=== PATIENT | female | born 1945 | race Caucasian/White ===

== ENCOUNTER 2016-08-02 11:37 | Emergency (ER) | payer OTHER ==
[2016-08-02 11:45] VITALS: TEMP 97.8; BMI 34.4
--- NOTE | 2016-08-02 12:13 | PDOC ---
History of Present Illness - General History Source: Patient, Family Exam Limitations: Language Barrier - History of Present Illness Initial Comments: 08/02/16 12:18 The patient is a 70 year old female, accompanied by daughter, with a significant past medical history of hypertension(noncompliant with medication due to symptoms associated with taking medications), who presents to the emergency department complaining of non-radiating abdominal pain for approximately 2 weeks. As per daughter the patient has been experiencing associated dizziness, dry mouth, and has been increasing consumption of fluids. Daughter reports the patient abdominal pain is alleviated when drinking water, and exacerbated when she stops drinking water. The daughter reports the patient has not been herself since the onset of her symptoms, and states she has been increasingly sleepy during the middle of the day. The patient denies any changes in appetite, but reports some abdominal pain and burning in her chest after eating. As per daughter, the patient is currently not taking any medication other than advil. The patient reports increased urinary frequency, but denies dysuria, hematuria, or urgency. The patient reports diaphoresis, but denies any chest pain, shortness of breath, palpitations, or lower extremity edema. The patient denies any fever, chills, cough, or headache. The patient denies any nausea, vomiting, diarrhea, or constipation. Allergies: NKDA Surgical History: Cholecystectomy Social History: Non-smoker. No ETOH or drug use. <Jennifer Spencer - Last Filed: 08/02/16 12:44> <Rosanna Kay - Last Filed: 08/02/16 15:40> - General Chief Complaint: Pain Stated Complaint: STOMACH PAIN Time Seen by Provider: 08/02/16 11:55 Past History <Jennifer Spencer - Last Filed: 08/02/16 12:44> - Surgical History Cholecystectomy: Yes - Psycho/Social/Smoking Cessation Hx Suicidal Ideation: No Smoking History: Never smoked Information on smoking cessation initiated: No <Rosanna Kay - Last Filed: 08/02/16 15:40> - Past Medical History Allergies/Adverse Reactions: Allergies Allergy/AdvReac Type Severity Reaction Status Date / Time No Known Allergies Allergy Verified 08/02/16 11:45 Home Medications: Ambulatory Orders Metformin HCl 500 mg PO BID #60 tablet 08/02/16 Review of Systems - Review of Systems Able to Perform ROS?: Yes Comments:: 08/02/16 12:18 GENERAL/CONSTITUTIONAL: No fever or chills. No weakness. HEAD, EYES, EARS, NOSE AND THROAT: +Dry mouth. No change in vision. No ear pain or discharge. No sore throat. CARDIOVASCULAR: No chest pain or shortness of breath. RESPIRATORY: No cough, wheezing, or hemoptysis. GASTROINTESTINAL: +Abdominal pain. No nausea, vomiting, diarrhea or constipation. GENITOURINARY: +Frequency. No dysuria or hematuria. MUSCULOSKELETAL: No joint or muscle swelling or pain. No neck or back pain. SKIN: No rash NEUROLOGIC: +Dizziness. No headache, vertigo, loss of consciousness, or change in strength/sensation. ENDOCRINE: +Increased thirst. No abnormal weight change. HEMATOLOGIC/LYMPHATIC: No anemia, easy bleeding, or history of blood clots. ALLERGIC/IMMUNOLOGIC: No hives or skin allergy. <TjGiomilsy - Last Filed: 08/02/16 12:44> *Physical Exam - Vital Signs Last Vital Signs Temp Pulse Resp BP Pulse Ox 97.8 F 83 18 159/85 97 08/02/16 11:42 08/02/16 11:42 08/02/16 11:42 08/02/16 11:42 08/02/16 11:42 - Physical Exam Comments: 08/02/16 12:19 GENERAL: Awake, alert, and fully oriented, in no acute distress HEAD: No signs of trauma EYES: PERRLA, EOMI, sclera anicteric, conjunctiva clear ENT: Auricles normal inspection, hearing grossly normal, nares patent, oropharynx clear without exudates. Dry mucosa NECK: Normal ROM, supple, no lymphadenopathy, JVD, or masses LUNGS: Breath sounds equal, clear to auscultation bilaterally. No wheezes, and no crackles HEART: Regular rate and rhythm, normal S1 and S2, no murmurs, rubs or gallops ABDOMEN: +Epigastric tenderness to palpation. Soft, normoactive bowel sounds. No guarding, no rebound. No masses EXTREMITIES: Normal range of motion, no edema. No clubbing or cyanosis. No cords, erythema, or tenderness NEUROLOGICAL: Cranial nerves II through XII grossly intact. Normal speech, normal gait SKIN: Warm, Dry, normal turgor, no rashes or lesions noted. <Jennifer Spencer - Last Filed: 08/02/16 12:44> - Vital Signs Last Vital Signs Temp Pulse Resp BP Pulse Ox 97.8 F 83 18 159/85 97 08/02/16 11:42 08/02/16 11:42 08/02/16 11:42 08/02/16 11:42 08/02/16 11:42 <Rosanna Kay - Last Filed: 08/02/16 15:40> ED Treatment Course - LABORATORY CBC & Chemistry Diagram: 08/02/16 12:16 08/02/16 12:16 <Jennifer Spencer - Last Filed: 08/02/16 12:44> - LABORATORY CBC & Chemistry Diagram: 08/02/16 12:16 08/02/16 12:16 <Rosanna Kay - Last Filed: 08/02/16 15:40> Medical Decision Making - Medical Decision Making Rpt FS 208 after IV fluids. Will start pt on metformin. Referred to [facility] for outpatient PMD f/u. <Rosanna Kay - Last Filed: 08/02/16 15:40> *DC/Admit/Observation/Transfer - Attestations Scribe Attestion: 08/02/16 12:19 Documentation prepared by Jennifer Spencer, acting as paramedical aide for Rosanna Kay MD. <Jennifer Spencer - Last Filed: 08/02/16 12:44> - Discharge Dispostion Admit: No <Rosanna Kay - Last Filed: 08/02/16 15:40> Diagnosis at time of Disposition: Dehydration, Hyperglycemia - Discharge Dispostion Disposition: HOME Condition at time of disposition: Stable - Prescriptions Prescriptions: Metformin HCl 500 mg PO BID #60 tablet - Referrals Referrals: John Palomares MD [Staff Physician] - Teresa Jaramillo MD [Staff Physician] - Brooklyn Epps MD [Staff Physician] - - Patient Instructions Printed Discharge Instructions: DI for Diabetes Type 2
[2016-08-02] MEDS ORDERED: SODIUM CHLORIDE 1,000 ML IV STA ×2 (12:14→13:29)
[2016-08-02] MEDS ORDERED: FAMOTIDINE 20 MG/50 ML IVPB 50 ML IVPB ONE ×2 (12:24→12:25)
[2016-08-02 12:25] LABS: BASOPHIL 0.2 % (0-2.0); EOSINOPHIL 2.2 % (0-4.5); MCH 28.9 pg (25.7-33.7); MCHC 33.3 g/dl (32.0-36.0); MEAN CELL VOLUME 86.9 fl (80-96); MEAN PLT VOLUME 8.8 fl (7.5-11.1); NEUTROPHILS 38.3 % (42.8-82.8); PLATELET COUNT 264 K/MM3 (134-434); RDW 13.2 % (11.6-15.6); WHITE BLOOD COUNT 6.1 K/mm3 (4.0-10.0)
[2016-08-02 12:29] LABS: URINE APPEARANCE CLOUDY; URINE BILIRUBIN NEGATIVE (NEGATIVE); URINE COLOR LTYELLOW; URINE GLUCOSE (UA) 3+ (NEGATIVE); URINE KETONE TRACE (NEGATIVE); URINE NITRITE NEGATIVE (NEGATIVE); URINE PROTEIN NEGATIVE (NEGATIVE); URINE UROBILINOGEN NEGATIVE E.U./dl (0.2-1.0)
[2016-08-02 12:31] LABS: URINE BLOOD 1+ (NEGATIVE)
[2016-08-02 12:38] LABS: URINE MUCUS RARE; URINE RBC 29 /hpf (0-3); URINE WBC 30 /hpf (3-5)
[2016-08-02 12:51] LABS: ALBUMIN 4.3 g/dl (3.4-5.0); ALK PHOS 93 U/L (45-117); ANION GAP 12 (8-16); BILIRUBIN,TOTAL 0.4 mg/dL (0.2-1.0); CALCIUM 9.7 mg/dL (8.5-10.1); CO2 23 mmol/L (21-32); CREATININE 0.8 mg/dL (0.55-1.02); SGOT/AST 28 U/L (15-37); SGPT/ALT 57 U/L (12-78); TOT PROT 8.1 g/dl (6.4-8.2)
[2016-08-02 13:03] LABS: GLUCOSE,RANDOM 379 mg/dL (74-106)
[2016-08-02 15:09] VITALS: BP 152/78; PULSE 70
== END 2016-08-02 15:24 | disposition home or self-care (01) ==
LOC: JER 11:37
PROC: 3E0337Z Introduction of Electrolytic and Water Balance Substance into Peripheral Vein, Percutaneous Approach (ICD-10-PCS; principal; 2016-08-02)
PROC: 3E033GC Introduction of Other Therapeutic Substance into Peripheral Vein, Percutaneous Approach (ICD-10-PCS; 2016-08-02)
DX: E11.9 Type 2 diabetes mellitus without complications (principal); Z79.84 Long term (current) use of oral hypoglycemic drugs; E86.0 Dehydration
CPT/HCPCS: 36415; 80053; 81003; 81015; 83036; 83690; 85025; 99283-25

== ENCOUNTER 2019-03-26 09:28 | Inpatient (IN) | payer OTHER ==
--- NOTE | 2019-03-26 10:01 | PDOC ---
History of Present Illness - General Chief Complaint: Palpitations Stated Complaint: New Onset of A.FIB/CHEST PAIN Time Seen by Provider: 03/26/19 09:48 History Source: Patient Exam Limitations: No Limitations - History of Present Illness Initial Comments: 03/26/19 09:58 Messi Marquez is a 73F with PMH NIDDM, HTN, and GERD presenting with palpitations and SOB in the setting of new onset AFIB with RVR. Patient was otherwise normal yesterday, woke up at 3AM and suddenly experienced palpitations and shortness of breath. First episode of this occurring, denies prior history of AFIB, denies history of thyroid disease or prior CT/ACS. No chest pain, nausea/vomiting, urinary sx, constipation/diarrhea, CASTILLO, or dizziness. Denies other cardiac history other than HTN. Medications: Glimeperide 1mg QD Metformin 500mg BID Omeprazole 20mg BID Losartan 100mg QHS Amlodipine 25mg QHS Past History - Past Medical History Allergies/Adverse Reactions: Allergies Allergy/AdvReac Type Severity Reaction Status Date / Time No Known Allergies Allergy Verified 08/02/16 11:45 Home Medications: Ambulatory Orders metFORMIN HCL [Metformin HCl] 500 mg PO BID #60 tablet 08/02/16 Amlodipine Besylate 2.5 mg PO DAILY 03/26/19 Glimepiride [Amaryl -] 1 mg PO DAILY 03/26/19 Losartan Potassium [Cozaar] 100 mg PO DAILY 03/26/19 Pantoprazole Sodium [Protonix -] 20 mg PO BID 03/26/19 COPD: No Diabetes: Yes Hypercholesterolemia: Yes - Surgical History Cholecystectomy: Yes - Immunization History Immunization Up to Date: No - Psycho Social/Smoking Cessation Hx Smoking History: Unknown if ever smoked Have you smoked in the past 12 months: No Information on smoking cessation initiated: No Hx Alcohol Use: No Drug/Substance Use Hx: No *Physical Exam - Vital Signs Last Vital Signs Temp Pulse Resp BP Pulse Ox 98.2 F 145 H 16 142/68 98 03/26/19 09:36 03/26/19 09:36 03/26/19 09:36 03/26/19 09:36 03/26/19 09:51 ED Treatment Course - LABORATORY CBC & Chemistry Diagram: 03/26/19 10:24 03/26/19 10:05 Medical Decision Making - Medical Decision Making 03/26/19 09:58 Messi Marquez is a 73F with PMH NIDDM, HTN, and GERD presenting with palpitations and SOB in the setting of new onset AFIB with RVR. Patient presents with tachycardia and AFIB with RVR, HR 150s. First time episode. Will rate control with 0.25 mg/kg diltiazem and re-evaluate. ECG shows Afib with RVR, HR 148, QTc 496, no evidence of ischemic changes or TWI. 15mg Ditiazem given, lower dose 2/2 BP 122/78 Re-assessed, HR down to 90. Repeat ECG shows Afib with HR 105, QTc 452, no evidence of ischemic changes or TWI. Giving 30mg PO diltiazem to further stabilize HR. CBC CMP CP TSH Free T4 CXR 03/26/19 11:45 Labs unremarkable. Trop <0.02. CXR shows no gross pulmonary or cardiac pathology Bedside US shows no significant abnormalities other than irregular heartbeat. Patient requires inpatient admission for monitoring of her new onset afib, cardiologic evaluation of her heart, and initiation of new rate controlling medications. 03/26/19 11:58 CHADS-VASc = 5, will need AC for thrombus ppx. Signed out to sky Leon to be admitted to [facility] under Dr. Beckett. Discharge - Discharge Information Problems reviewed: Yes Clinical Impression/Diagnosis: Palpitations, Atrial fibrillation with RVR Condition: Stable - Follow up/Referral - Patient Discharge Instructions - Post Discharge Activity
[2019-03-26] MEDS ORDERED: dilTIAZem HCL 50 MG/10 ML - 10 ML VIAL IVPUSH ONE (10:16)
[2019-03-26] MEDS ORDERED: ACETAMINOPHEN 1000 MG/100 ML VIAL (NON FORMULARY) IVPB ONE (10:28)
[2019-03-26] MEDS ORDERED: dilTIAZem HCL 30 MG TABLET (FP) ONE (10:35)
[2019-03-26] MEDS ORDERED: dilTIAZem HCL 30 MG TABLET (FP) PO ONE (10:35)
[2019-03-26] MEDS ORDERED: ACETAMINOPHEN INJECTION 100 ML IVPB ONE (10:35)
[2019-03-26 10:45] LABS: BASO % 1.5 % (0-2.0); EOS % 9.6 % (0-4.5); HEMATOCRIT 44.7 % (32.4-45.2); HEMOGLOBIN 14.5 GM/dL (10.7-15.3); LYMPH % 45.2 % (8-40); MCH 28.5 pg (25.7-33.7); MCHC 32.6 g/dl (32.0-36.0); MEAN CELL VOLUME 87.6 fl (80-96); MEAN PLT VOLUME 9.4 fl (7.5-11.1); MONO % 8.3 % (3.8-10.2); NEUT % 35.4 % (42.8-82.8); PLATELET COUNT 338 K/MM3 (134-434)
--- NOTE | 2019-03-26 11:02 | PDOC ---
Documentation entered by Leslie Dickens SCRIBE, acting as scribe for Nuha Wiggins MD. Nuha Wiggins MD: This documentation has been prepared by the Chrissie thompson Nirvannie, SCRIBE, under my direction and personally reviewed by me in its entirety. I confirm that the documentation accurately reflects all work, treatment, procedures, and medical decision making performed by me. Attending Attestation - Resident Resident Name: DesiGuy - ED Attending Attestation I have performed the following: I have examined & evaluated the patient, The case was reviewed & discussed with the resident, I agree w/resident's findings & plan, Exceptions are as noted - HPI HPI: 03/26/19 10:36 The patient is a 73 year old female, with a significant past medical history of NIDDM and HTN, who presents to the emergency department with, 7 hours of sudden onset shortness of breath and palpitations. As per patient, her symptoms onset suddenly at 3am this morning and has been ongoing since. While in the ED, pt reporting sternal dull CP, radiating to the RUE. She denies any similar episodes in the past. She denies any diaphoresis, or change in strength/sensation. She denies recent fevers, chills, headache or dizziness. She denies recent nausea, vomiting, diarrhea or constipation. She denies recent dysuria, frequency, urgency or hematuria. Allergies: NKDA Primary Care Physician: Dr. Harris ([facility]) - Physicial Exam PE: 03/26/19 10:57 GENERAL: Awake, alert, and fully oriented, in no acute distress EYES: PERRLA, EOMI, sclera anicteric, conjunctiva clear ENT: Oropharynx clear without exudates. Moist mucosa NECK: Normal ROM, supple, no lymphadenopathy, JVD, or masses LUNGS: Breath sounds equal, clear to auscultation bilaterally. No wheezes, and no crackles HEART: tachy to 140s, irregular, normal S1 and S2, no murmurs, rubs or gallops ABDOMEN: Soft, nontender, normoactive bowel sounds. No guarding, no rebound. No masses EXTREMITIES: Normal range of motion, no edema. No cords, erythema, or tenderness. +WWP NEUROLOGICAL: Normal speech, cranial nerves intact, equal strength and sensation b/l SKIN: Warm, Dry, normal turgor, no rashes or lesions noted. - Medical Decision Making 03/26/19 11:00 73-year-old female with a history of hypertension, diabetes, GERD presents the emergency department with new onset A. fib with RVR as well as chest pain + shortness of breath. Heart rate on arrival in the 150s Patient on amlodipine as an outpatient, and thus was given diltiazem 15 mg IV with good response. Heart rate now in the 90s and low 100s. Patient was then diltiazem 30 mg p.o. Repeat EKG remains in Afib, but rate is now 105. No ST elevations. Anticipate admission for new onset A. fib as well as for cardiac work-up given chest pain and shortness of breath.
[2019-03-26 11:31] LABS: BLOOD UREA NITROGEN 18.3 mg/dL (7-18); CALCIUM 9.4 mg/dL (8.5-10.1); CHLORIDE 111 mmol/L (98-107); CO2 20 mmol/L (21-32); CREATININE 0.9 mg/dL (0.55-1.3); GLUCOSE,RANDOM 249 mg/dL (74-106); POTASSIUM 4.3 mmol/L (3.5-5.1); SODIUM 139 mmol/L (136-145); TOT PROT 7.6 g/dl (6.4-8.2)
[2019-03-26 11:32] LABS: ALBUMIN 3.9 g/dl (3.4-5.0); ALK PHOS 86 U/L (45-117); BILIRUBIN,TOTAL 0.5 mg/dL (0.2-1); SGOT/AST 8 U/L (15-37); SGPT/ALT 23 U/L (13-61)
--- NOTE | 2019-03-26 12:38 | EKG ---
Test Reason : Blood Pressure : / mmHG Vent. Rate : 105 BPM Atrial Rate : 097 BPM P-R Int : 000 ms QRS Dur : 096 ms QT Int : 342 ms P-R-T Axes : 000 025 027 degrees QTc Int : 452 ms ATRIAL FIBRILLATION WITH RAPID VENTRICULAR RESPONSE ABNORMAL ECG NO PREVIOUS ECGS AVAILABLE Confirmed by ALEXANDRA LINDSEY MD ([id number]) on 03/26/2019 12:37:35 PM Referred By: Confirmed By:ALEXANDRA LINDSEY MD
--- NOTE | 2019-03-26 12:48 | HP ---
<James Pascual - Last Filed: 03/26/19 13:53> CHIEF COMPLAINT: Palpitations PCP: Dr. Harris HISTORY OF PRESENT ILLNESS: 73yo [place]ish-speaking F with T1DM, HTN, GERD who presents today with palpitations. Pt first started experiencing palpitations at 3am previous night. She was awoken to palpitations that lasted about 10 minutes. Pt went back to bed and upon waking she noticed intermittent episodes of palpitations. She endorses shortness of breath during these episodes, however denies any chest pain. Pt reports it felt like her heart was beating out of her chest. Pt denies any previous episodes and has never seen a ship's carpenter. Pt does not have any thyroid dysfunction nor has any alcoholic beverages. Pt denies any previous bleeding episodes or stroke history. Pt denies any blurry visions, lightheadedness/dizziness, cough, constitutional symptoms, jaw claudication, abdominal pain, diarrhea/constipation, dysuria, polyuria, numbness, and weakness. Currently pt's SOB and palpitations have improved with ED treatment Recent Travel: None PAST MEDICAL HISTORY: HTN Type 1 DM GERD PAST SURGICAL HISTORY: None Social History: Smoking: Denies Alcohol: Denies Drugs: Denies Independent in ADLs Allergies No Known Allergies Allergy (Verified 08/02/16 11:45) HOME MEDICATIONS: Reconciled REVIEW OF SYSTEMS As per HPI PHYSICAL EXAMINATION Vital Signs - 24 hr 03/26/19 03/26/19 03/26/19 09:36 09:51 11:26 Temperature 98.2 F Pulse Rate 145 H Pulse Rate [ 104 H Apical] Respiratory 16 17 Rate Blood Pressure 142/68 Blood Pressure 124/44 L [Right Arm] O2 Sat by Pulse 98 98 98 Oximetry (%) GENERAL: NAD, Awake, alert, and fully oriented HEENT: NC/AT, EOMI, NICKI, sclera anicteric, MMM NECK: No JVD, no thyromegaly or thyroid nodules appreciated LUNGS: CTA bilaterally. No wheezes, and no crackles. No accessory muscle use. HEART: Irregularly irregular with tachycardia (rate on monitor 110bpm), normal S1 and S2 without murmur appreciated ABDOMEN: Soft, nondistended, slight tenderness mid-epigastrum, normoactive BS, no guarding, no rebound, no hepatomegaly or liver nodules appreciated EXTREMITIES: 2+ DP pulses, warm, well-perfused. No calf tenderness. No peripheral edema. NEUROLOGICAL: yarn wrapper II-XII intact. Nonfocal exam. Strength 5/5 throughout. Sensation intact throughou. Normal speech. Gait not observed SKIN: Warm, dry, no rashes or lesions noted Laboratory Results - last 24 hr 03/26/19 03/26/19 03/26/19 10:05 10:24 10:28 WBC 10.0 RBC 5.10 Hgb 14.5 Hct 44.7 MCV 87.6 MCH 28.5 MCHC 32.6 RDW 14.0 Plt Count 338 D MPV 9.4 Absolute Neuts (auto) 3.6 Neutrophils % 35.4 L Lymphocytes % 45.2 H Monocytes % 8.3 Eosinophils % 9.6 H D Basophils % 1.5 D Nucleated RBC % 0 Sodium 139 Potassium 4.3 Chloride 111 H Carbon Dioxide 20 L Anion Gap No Result Required. BUN 18.3 H Creatinine 0.9 Est GFR (CKD-EPI)AfAm 73.00 Est GFR (CKD-EPI)NonAf 62.99 Random Glucose 249 H Calcium 9.4 Total Bilirubin 0.5 AST 8 L ALT 23 Alkaline Phosphatase 86 Creatine Kinase 64 Troponin I < 0.02 Total Protein 7.6 Albumin 3.9 TSH 1.01 Free T4 1.10 ECG 0929h- Atrial fibrillation with RVR @ 148bpm, no JUAN CARLOS/D, no TWI, Qtc 496 ECG 1035h -Atrial fibrillation with RVR @105bpm, no JUAN CARLOS/D, no TWI, QTc 452, normal axis nomrla R-wave progression ASSESSMENT/PLAN: New Onset Atrial Fibrillation with RVR Type 1 DM History of HTN GERD --CHADS-VASc 4: Will need AC due to yearly stroke risk elevated --HASBLED 2 (4.1% bleed risk) --Toprol XL 25mg qdaily initiated today for rate control --Will have Cardizem 5mg IV q6h PRN for breakthrough RVR (Holding if SBP <100 ) --Holding home dose CCB while initiating beta-blockade for rate control --Echocardiogram ordered to r/o valvular pathology --TSH/FT4 normal in ER workup --No preceding viral illnesses; no previous ischemia/KS; no alcohol consumption --Cardiology consulted --Started Lovenox therapeutic dose BID for AC for now --Discussed with family and patient that pending the echocardiogram we can discuss different options for long-term AC --Holding oral glycemic control --ISS placed on board with BGM ACHS --Diabetic controlled diet --Previous A1c 8.2% --Continue Losartan 100mg qdaily home dose --Continue Protonix 20mg BID PO for GERD FEN: Fluids: None Electrolytes: No abnormalities; adding Magnesium Nutrition: Diabetic diet PPX: DVT - Lovenox on board GI - Protonix 20mg BID already on board Directives: Full Code Dispo: Admit to Telemetry unit Case discussed with ER James Pascual, DO - IM PGY-3 Visit type - Emergency Visit Emergency Visit: Yes ED Registration Date: 03/26/19 Care time: The patient presented to the Emergency Department on the above date and was hospitalized for further evaluation of their emergent condition. - New Patient This patient is new to me today: Yes Date on this admission: 03/26/19 - Critical Care Critical Care patient: No ATTENDING PHYSICIAN STATEMENT I saw and evaluated the patient. I reviewed the resident's note and discussed the case with the resident. I agree with the resident's findings and plan as documented. SUBJECTIVE: OBJECTIVE: ASSESSMENT AND PLAN: <Dashawn Farooq - Last Filed: 03/27/19 09:51> Seen and examined; agree with above aside from as documented by myself in supplement. Confirmed all smith historica and exam findings alongside personally reviewed all tele, labs, and diagnostics ATTENDING PHYSICIAN STATEMENT I saw and evaluated the patient. I reviewed the resident's note and discussed the case with the resident. I agree with the resident's findings and plan as documented. SUBJECTIVE: OBJECTIVE: ASSESSMENT AND PLAN:
[2019-03-26] MEDS ORDERED: ENOXAPARIN NA (PORCINE) 60 MG/0.6 ML DISP.SYRIN SQ SCH (13:00)
[2019-03-26] MEDS ORDERED: ENOXAPARIN NA (PORCINE) 80 MG/0.8 ML DISP.SYRIN SQ SCH (13:00)
[2019-03-26] MEDS ORDERED: dilTIAZem HCL 50 MG/10 ML - 10 ML VIAL IVPUSH PRN (13:06)
[2019-03-26] MEDS: metoPROLOL SUCCINATE 25 MG TAB.SR.24H (FP) PO SCH (13:09)
[2019-03-26 14:48] LABS: MAGNESIUM 2.3 mg/dL (1.8-2.4)
--- NOTE | 2019-03-26 15:21 | CON.CARD ---
Consult Consult Specialty:: Cardiology Referred by:: Medicine Reason for Consultation:: atrial fibirllation - History of Present Illness Chief Complaint: fatigue, palpitations History of Present Illness: 73F h/o DM, HTN, GERD p/w palps. Started overnight prior to admission, felt short of breath too. Got better and then in the morning had intermittent palpitations again. No cardiac hx. Feels better now, no chest pain, dizziness, dyspnea. Still has palps, less often. - Alcohol/Substance Use Hx Alcohol Use: No - Smoking History Smoking history: Unknown if ever smoked Have you smoked in the past 12 months: No Home Medications - Allergies Allergies/Adverse Reactions: Allergies Allergy/AdvReac Type Severity Reaction Status Date / Time No Known Allergies Allergy Verified 08/02/16 11:45 - Home Medications Home Medications: Ambulatory Orders metFORMIN HCL [Metformin HCl] 500 mg PO BID #60 tablet 08/02/16 Amlodipine Besylate 2.5 mg PO DAILY 03/26/19 Glimepiride [Amaryl -] 1 mg PO DAILY 03/26/19 Losartan Potassium [Cozaar] 100 mg PO DAILY 03/26/19 Pantoprazole Sodium [Protonix -] 20 mg PO BID 03/26/19 Family Medical History Family History: Unremarkable Review of Systems - Review of Systems Constitutional: reports: No Symptoms Eyes: reports: No Symptoms HENT: reports: No Symptoms Neck: reports: No Symptoms Cardiovascular: reports: No Symptoms Respiratory: reports: No Symptoms Gastrointestinal: reports: No Symptoms Genitourinary: reports: No Symptoms Musculoskeletal: reports: No Symptoms Integumentary: reports: No Symptoms Neurological: reports: No Symptoms Endocrine: reports: No Symptoms Hematology/Lymphatic: reports: No Symptoms Psychiatric: reports: No Symptoms Vital Signs: Vital Signs Temperature 98.1 F 03/26/19 13:17 Pulse Rate 105 H 03/26/19 13:17 Respiratory Rate 19 03/26/19 13:17 Blood Pressure 123/61 03/26/19 13:17 O2 Sat by Pulse Oximetry (%) 98 03/26/19 13:17 Constitutional: Yes: No Distress, Calm Eyes: Yes: Conjunctiva Clear, EOM Intact HENT: Yes: Atraumatic, Normocephalic Neck: Yes: Supple, Trachea Midline Respiratory: Yes: Regular, CTA Bilaterally Gastrointestinal: Yes: Normal Bowel Sounds, Soft Cardiovascular: Yes: Tachycardia, Pulse Irregular Heart Sounds: Yes: S1, S2 Extremities: No: Cold Edema: No Integumentary: No: Jaundice Neurological: Yes: Alert, Oriented Psychiatric: No: Agitated - Other Data Labs, Other Data: CBC, BMP 03/26/19 10:24 03/26/19 10:05 Troponin, BNP 03/26/19 10:28 Troponin I < 0.02 Troponin, BNP 03/26/19 10:28 Troponin I < 0.02 Assessment/Plan EKG: afib rate 105 bpm. no ischeimic changes CXR: no acute process tele: afib 100s-110s, episodes RVR 130s-140s atrial fibrillation - echo pending - [id number] warrants AC, can transition to NOAC - continue metoprolol for now, uptitrate as tolerated - monitoring on tele HTN - stable, cont current meds DM - manage per primary
[2019-03-26 15:45] VITALS: BMI 32.1
[2019-03-26] MEDS: INSULIN SLIDING SCALE (NOVOLOG) 1 VIAL SQ SCH ×2 (17:43→22:04)
[2019-03-26] MEDS: PANTOPRAZOLE 20 MG TABLET (FP) PO SCH (22:04)
[2019-03-27] MEDS: INSULIN SLIDING SCALE (NOVOLOG) 1 VIAL SQ SCH (06:07)
[2019-03-27 06:36] LABS: HEMATOCRIT 39.2 % (32.4-45.2); HEMOGLOBIN 13.1 GM/dL (10.7-15.3); MCH 29.1 pg (25.7-33.7); MCHC 33.4 g/dl (32.0-36.0); MEAN PLT VOLUME 8.4 fl (7.5-11.1); PLATELET COUNT 299 K/MM3 (134-434); RBC 4.51 M/mm3 (3.60-5.2); RDW 13.9 % (11.6-15.6); WHITE BLOOD COUNT 6.9 K/mm3 (4.0-10.0)
[2019-03-27 07:01] LABS: BLOOD UREA NITROGEN 21.9 mg/dL (7-18); CALCIUM 9.2 mg/dL (8.5-10.1); CREATININE 0.8 mg/dL (0.55-1.3); MAGNESIUM 2.1 mg/dL (1.8-2.4); POTASSIUM 4.1 mmol/L (3.5-5.1)
--- NOTE | 2019-03-27 08:33 | DS ---
Physical Exam: SUBJECTIVE: Rate controlled; awaiting echo prior to d/c. AC discussed; will need cardio/primary f/u. Pt without complaints. OBJECTIVE: Vital Signs Period Temp Pulse Resp BP Sys/Jean Pulse Ox Last 24 Hr 98 F-98.7 F 73-145 16-20 123-142/44-73 98-99 PHYSICAL EXAM GENERAL: NAD, Awake, alert, and fully oriented HEENT: NC/AT, EOMI, NICKI, sclera anicteric, MMM NECK: No JVD LUNGS: CTA bilaterally. No wheezes, and no crackles. No accessory muscle use. HEART: Irregularly irregular normal rate, normal S1 and S2 without murmur appreciated ABDOMEN: Soft, nondistended, nontender, normoactive BS, no guarding, no rebound EXTREMITIES: 2+ DP pulses, No calf tenderness. No peripheral edema. SKIN: Warm, dry, no rashes or lesions noted LABS Laboratory Results - last 24 hr 03/26/19 03/26/19 03/26/19 10:05 10:24 10:28 WBC 10.0 RBC 5.10 Hgb 14.5 Hct 44.7 MCV 87.6 MCH 28.5 MCHC 32.6 RDW 14.0 Plt Count 338 D MPV 9.4 Absolute Neuts (auto) 3.6 Neutrophils % 35.4 L Lymphocytes % 45.2 H Monocytes % 8.3 Eosinophils % 9.6 H D Basophils % 1.5 D Nucleated RBC % 0 Sodium 139 Potassium 4.3 Chloride 111 H Carbon Dioxide 20 L Anion Gap No Result Required. BUN 18.3 H Creatinine 0.9 Est GFR (CKD-EPI)AfAm 73.00 Est GFR (CKD-EPI)NonAf 62.99 POC Glucometer Random Glucose 249 H Calcium 9.4 Magnesium 2.3 Total Bilirubin 0.5 AST 8 L ALT 23 Alkaline Phosphatase 86 Creatine Kinase 64 Troponin I < 0.02 Total Protein 7.6 Albumin 3.9 TSH 1.01 Free T4 1.10 03/26/19 03/26/19 03/27/19 17:16 21:18 05:53 WBC RBC Hgb Hct MCV MCH MCHC RDW Plt Count MPV Absolute Neuts (auto) Neutrophils % Lymphocytes % Monocytes % Eosinophils % Basophils % Nucleated RBC % Sodium Potassium Chloride Carbon Dioxide Anion Gap BUN Creatinine Est GFR (CKD-EPI)AfAm Est GFR (CKD-EPI)NonAf POC Glucometer 254 110 163 Random Glucose Calcium Magnesium Total Bilirubin AST ALT Alkaline Phosphatase Creatine Kinase Troponin I Total Protein Albumin TSH Free T4 03/27/19 03/27/19 05:55 05:55 WBC 6.9 RBC 4.51 Hgb 13.1 Hct 39.2 MCV 87.0 MCH 29.1 MCHC 33.4 RDW 13.9 Plt Count 299 MPV 8.4 D Absolute Neuts (auto) Neutrophils % Lymphocytes % Monocytes % Eosinophils % Basophils % Nucleated RBC % Sodium 140 Potassium 4.1 Chloride 106 Carbon Dioxide 24 Anion Gap 9 BUN 21.9 H Creatinine 0.8 Est GFR (CKD-EPI)AfAm 84.18 Est GFR (CKD-EPI)NonAf 72.63 POC Glucometer Random Glucose 165 H Calcium 9.2 Magnesium 2.1 Total Bilirubin AST ALT Alkaline Phosphatase Creatine Kinase Troponin I Total Protein Albumin TSH Free T4 Active Medications Diltiazem HCl (Cardizem Injection -) 5 mg IVPUSH Q4H PRN PRN Reason: TACHYCARDIA Enoxaparin Sodium (Lovenox -) 70 mg SQ BID [facility] Last Admin: 03/26/19 22:03 Dose: 70 mg Insulin Aspart (Novolog Vial Sliding Scale -) 1 vial SQ [facility]; Protocol Last Admin: 03/27/19 06:07 Dose: 2 units Losartan Potassium (Cozaar -) 100 mg PO DAILY [facility] Metoprolol Succinate (Toprol Xl -) 25 mg PO DAILY [facility] Last Admin: 03/26/19 13:09 Dose: 25 mg Pantoprazole Sodium (Protonix -) 20 mg PO BID [facility] Last Admin: 03/26/19 22:04 Dose: 20 mg HOSPITAL COURSE: Date of Admission:03/26/19 Date of Discharge: 03/27/19 <James Pascual - Last Filed: 03/27/19 08:33> Physical Exam: SUBJECTIVE: Patient seen and examined OBJECTIVE: Vital Signs Period Temp Pulse Resp BP Sys/Jean Pulse Ox Last 24 Hr 98 F-98.7 F 73-118 17-20 123-132/44-73 98-99 PHYSICAL EXAM GENERAL: The patient is awake, alert, and fully oriented, in no acute distress. HEAD: Normal with no signs of trauma. EYES: PERRL, extraocular movements intact, sclera anicteric, conjunctiva clear. ENT: Ears normal, nares patent, oropharynx clear without exudates, moist mucous membranes. NECK: Trachea midline, full range of motion, supple. LUNGS: Breath sounds equal, clear to auscultation bilaterally, no wheezes, no crackles, no accessory muscle use. HEART: Regular rate and rhythm, S1, S2 without murmur, rub or gallop. ABDOMEN: Soft, nontender, nondistended, normoactive bowel sounds, no guarding, no rebound, no hepatosplenomegaly, no masses. EXTREMITIES: 2+ pulses, warm, well-perfused, no edema. NEUROLOGICAL: Cranial nerves II through XII grossly intact. Normal speech, gait not observed. PSYCH: Normal mood, normal affect. SKIN: Warm, dry, normal turgor, no rashes or lesions noted. LABS Laboratory Results - last 24 hr 03/26/19 03/26/19 03/26/19 10:05 10:24 10:28 WBC 10.0 RBC 5.10 Hgb 14.5 Hct 44.7 MCV 87.6 MCH 28.5 MCHC 32.6 RDW 14.0 Plt Count 338 D MPV 9.4 Absolute Neuts (auto) 3.6 Neutrophils % 35.4 L Lymphocytes % 45.2 H Monocytes % 8.3 Eosinophils % 9.6 H D Basophils % 1.5 D Nucleated RBC % 0 Sodium 139 Potassium 4.3 Chloride 111 H Carbon Dioxide 20 L Anion Gap No Result Required. BUN 18.3 H Creatinine 0.9 Est GFR (CKD-EPI)AfAm 73.00 Est GFR (CKD-EPI)NonAf 62.99 POC Glucometer Random Glucose 249 H Calcium 9.4 Magnesium 2.3 Total Bilirubin 0.5 AST 8 L ALT 23 Alkaline Phosphatase 86 Creatine Kinase 64 Troponin I < 0.02 Total Protein 7.6 Albumin 3.9 TSH 1.01 Free T4 1.10 03/26/19 03/26/19 03/27/19 17:16 21:18 05:53 WBC RBC Hgb Hct MCV MCH MCHC RDW Plt Count MPV Absolute Neuts (auto) Neutrophils % Lymphocytes % Monocytes % Eosinophils % Basophils % Nucleated RBC % Sodium Potassium Chloride Carbon Dioxide Anion Gap BUN Creatinine Est GFR (CKD-EPI)AfAm Est GFR (CKD-EPI)NonAf POC Glucometer 254 110 163 Random Glucose Calcium Magnesium Total Bilirubin AST ALT Alkaline Phosphatase Creatine Kinase Troponin I Total Protein Albumin TSH Free T4 03/27/19 03/27/19 05:55 05:55 WBC 6.9 RBC 4.51 Hgb 13.1 Hct 39.2 MCV 87.0 MCH 29.1 MCHC 33.4 RDW 13.9 Plt Count 299 MPV 8.4 D Absolute Neuts (auto) Neutrophils % Lymphocytes % Monocytes % Eosinophils % Basophils % Nucleated RBC % Sodium 140 Potassium 4.1 Chloride 106 Carbon Dioxide 24 Anion Gap 9 BUN 21.9 H Creatinine 0.8 Est GFR (CKD-EPI)AfAm 84.18 Est GFR (CKD-EPI)NonAf 72.63 POC Glucometer Random Glucose 165 H Calcium 9.2 Magnesium 2.1 Total Bilirubin AST ALT Alkaline Phosphatase Creatine Kinase Troponin I Total Protein Albumin TSH Free T4 HOSPITAL COURSE: Date of Admission:03/26/19 Date of Discharge: 03/27/19 <Dashawn Farooq - Last Filed: 03/27/19 09:49> Discharge Summary Problems reviewed: Yes Reason For Visit: AFIB Current Active Problems Atrial fibrillation with RVR (Acute) Palpitations (Acute) - Home Medications Comprehensive Discharge Medication List: Ambulatory Orders metFORMIN HCL [Metformin HCl] 500 mg PO BID #60 tablet 08/02/16 Amlodipine Besylate 2.5 mg PO DAILY 03/26/19 Glimepiride [Amaryl -] 1 mg PO DAILY 03/26/19 Losartan Potassium [Cozaar] 100 mg PO DAILY 03/26/19 Pantoprazole Sodium [Protonix -] 20 mg PO BID 03/26/19 <James Pascual - Last Filed: 03/27/19 08:33> Current Active Problems Atrial fibrillation with RVR (Acute) Palpitations (Acute) - Home Medications Comprehensive Discharge Medication List: Ambulatory Orders metFORMIN HCL [Metformin HCl] 500 mg PO BID #60 tablet 08/02/16 Amlodipine Besylate 2.5 mg PO DAILY 03/26/19 Glimepiride [Amaryl -] 1 mg PO DAILY 03/26/19 Losartan Potassium [Cozaar] 100 mg PO DAILY 03/26/19 Pantoprazole Sodium [Protonix -] 20 mg PO BID 03/26/19 <Dashawn Farooq - Last Filed: 03/27/19 09:49> Condition: Stable - Instructions Referrals: Serenity Harris MD [Primary Care Provider] - ATTENDING PHYSICIAN STATEMENT I saw and evaluated the patient. I reviewed the resident's note and discussed the case with the resident. I agree with the resident's findings and plan as documented. SUBJECTIVE: OBJECTIVE: ASSESSMENT AND PLAN: <James Pascual - Last Filed: 03/27/19 08:33> ATTENDING PHYSICIAN STATEMENT I saw and evaluated the patient. I reviewed the resident's note and discussed the case with the resident. I agree with the resident's findings and plan as documented. SUBJECTIVE: OBJECTIVE: ASSESSMENT AND PLAN: <Dashawn Farooq - Last Filed: 03/27/19 09:49>
--- NOTE | 2019-03-27 09:24 | PN ---
Progress Note, Physician Chief Complaint: Converted to NSR Daughter at bedside No CP, SOB, palps, dizziness Echo pending History of Present Illness: 73F h/o DM, HTN, GERD p/w palps. Started overnight prior to admission, felt short of breath too. Got better and then in the morning had intermittent palpitations again. No cardiac hx. Feels better now, no chest pain, dizziness, dyspnea. Still has palps, less often. - Current Medication List Current Medications: Active Medications Diltiazem HCl (Cardizem Injection -) 5 mg IVPUSH Q4H PRN PRN Reason: TACHYCARDIA Enoxaparin Sodium (Lovenox -) 70 mg SQ BID [facility] Last Admin: 03/26/19 22:03 Dose: 70 mg Insulin Aspart (Novolog Vial Sliding Scale -) 1 vial SQ [facility]CHS [facility]; Protocol Last Admin: 03/27/19 06:07 Dose: 2 units Losartan Potassium (Cozaar -) 100 mg PO DAILY [facility] Metoprolol Succinate (Toprol Xl -) 25 mg PO DAILY [facility] Last Admin: 03/26/19 13:09 Dose: 25 mg Pantoprazole Sodium (Protonix -) 20 mg PO BID [facility] Last Admin: 03/26/19 22:04 Dose: 20 mg - Objective Vital Signs: Vital Signs Temperature 98.5 F 03/27/19 01:46 Pulse Rate 73 03/27/19 01:46 Respiratory Rate 20 03/27/19 01:46 Blood Pressure 126/71 03/27/19 01:46 O2 Sat by Pulse Oximetry (%) 99 03/26/19 21:00 Constitutional: Yes: No Distress, Calm Eyes: Yes: Conjunctiva Clear Cardiovascular: Yes: Regular Rate and Rhythm Respiratory: Yes: CTA Bilaterally Gastrointestinal: Yes: Soft, Abdomen, Obese (NT) Edema: No Peripheral Pulses WNL: Yes Neurological: Yes: Alert, Oriented Labs: CBC, BMP 03/27/19 05:55 03/27/19 05:55 Laboratory Tests 03/26/19 10:28 TSH 1.01 - ....Imaging EKG: Image Reviewed Assessment/Plan Assessment/Plan EKG: afib rate 105 bpm. no ischeimic changes CXR: no acute process tele: afib 100s-110s, episodes RVR 130s-140s initially, now in NSR atrial fibrillation: - echo pending - [id number] warrants AC, transitioned to NOAC. Please assure Eliquis is covered as outpatient. - continue metoprolol for now, uptitrate as tolerated - If remains in NSR and echo with normal LVEF, can be discharge later today w/ outpatient f/u HTN - stable, cont current meds DM - manage per primary
[2019-03-27] MEDS ORDERED: APIXABAN 5 MG TABLET PO SCH (10:00)
[2019-03-27] MEDS ORDERED: LOSARTAN POTASSIUM 50 MG TABLET (FP) PO SCH (10:00)
[2019-03-27 10:08] VITALS: BP 122/62; PULSE 70; TEMP 98
--- NOTE | 2019-03-27 10:21 | ECHO ---
Name: MILES CHRISTIAN Exam:Adult Echocardiogram Study Date: 03/27/2019 08:42 AM Age: 73 yrs Reason For Study: R/O Valvular Pathology Height: 66 in Weight: 160 lb BSA: 1.8 m2 MMode/2D Measurements & Calculations IVSd: 0.98 cm Ao root diam: 2.8 cm LVIDd: 3.0 cm LA dimension: 3.7 cm LVIDs: 2.2 cm ACS: 2.0 cm LVPWd: 1.5 cm EDV(Teich): 34.3 ml LVOT diam: 2.1 cm ESV(Teich): 17.1 ml RV S Carlos: 11.9 cm/sec Doppler Measurements & Calculations MV E max carlos: 72.6 cm/sec Ao V2 max: 116.3 cm/sec MV A max carlos: 94.8 cm/sec Ao max P.4 mmHg MV E/A: 0.77 Ao V2 mean: 80.7 cm/sec MV dec time: 0.15 sec Ao mean P.0 mmHg Ao V2 VTI: 27.6 cm TEMO(I,D): 2.3 cm2 TEMO(V,D): 2.1 cm2 LV V1 max P.1 mmHg SV(LVOT): 64.5 ml LV V1 mean P.5 mmHg LV V1 max: 72.1 cm/sec LV V1 mean: 58.5 cm/sec LV V1 VTI: 19.4 cm TR max carlos: 161.7 cm/sec Med Peak E' Carlos: 7.1 cm/sec TR max P.9 mmHg Med E/e': 10.2 RVSP(TR): 21.9 mmHg Lat Peak E' Carlos: 6.7 cm/sec Lat E/e': 10.8 RAP systole: 10.0 mmHg Left Ventricle Ejection Fraction = 55-60%. The transmitral spectral Doppler flow pattern is suggestive of impaired L V relaxation. Right Ventricle The right ventricle is grossly normal size. The right ventricular systolic function is grossly normal . Atria Normal left and right atrial size and function. Mitral Valve The mitral valve is normal in structure and function. There is no mitral valve stenosis. There is mil d mitral regurgitation. Tricuspid Valve The tricuspid valve is normal in structure and function. There is Trace to mild tricuspid regurgitati on. Aortic Valve The aortic valve opens well. No hemodynamically significant valvular aortic stenosis. No aortic regur gitation is present. Pulmonic Valve The pulmonic valve is not well seen, but is grossly normal. There is no pulmonic valvular stenosis. Great Vessels The aortic root is normal size. Pericardium/Pleura There is no pericardial effusion. Interpretation Summary Ejection Fraction = 55-60%. The transmitral spectral Doppler flow pattern is suggestive of impaired LV relaxation. There is mild mitral regurgitation. There is Trace to mild tricuspid regurgitation. There is no pericardial effusion. MD Regan *La[place] 03/27/2019 10:21 AM
[2019-03-27] MEDS: PANTOPRAZOLE 20 MG TABLET (FP) PO SCH (10:44)
[2019-03-27] MEDS: metoPROLOL SUCCINATE 25 MG TAB.SR.24H (FP) PO SCH (10:44)
--- NOTE | 2019-03-27 13:53 | EKG ---
Test Reason : Blood Pressure : / mmHG Vent. Rate : 148 BPM Atrial Rate : 133 BPM P-R Int : 000 ms QRS Dur : 098 ms QT Int : 316 ms P-R-T Axes : 000 031 023 degrees QTc Int : 496 ms ATRIAL FIBRILLATION WITH RAPID VENTRICULAR RESPONSE INCOMPLETE RIGHT BUNDLE BRANCH BLOCK ABNORMAL ECG NO PREVIOUS ECGS AVAILABLE Confirmed by YANN PEDRAZA MD ([id number]) on 03/27/2019 1:52:56 PM Referred By: Confirmed By:YANN PEDRAZA MD
== END 2019-03-27 12:15 | disposition home or self-care (01) | DRG 310 ==
LOC: JER 09:28 → JERBED 11:01 → J4W 14:20
PROVIDERS: ADMIT Internal Medicine; ATTEND Internal Medicine
DX: I48.91 Unspecified atrial fibrillation (principal); I10 Essential (primary) hypertension; E11.9 Type 2 diabetes mellitus without complications; K21.9 Gastro-esophageal reflux disease without esophagitis; E66.9 Obesity, unspecified; Z68.32 Body mass index [BMI] 32.0-32.9, adult
CPT/HCPCS: 36415; 71045-TC-FY; 80048; 80053; 82550; 82962; 83735; 84439; 84443; 84484; 85025; 85027; 93005; 93010; 93306-TC; 99285-25; J0131

== ENCOUNTER 2024-01-27 09:10 | Emergency (ER) | payer OTHER ==
[2024-01-27 09:16] VITALS: BP 174/81; PULSE 64; RESP 20; TEMP 97.5; BMI 32.4
== END 2024-01-27 11:51 | disposition home or self-care (01) ==
LOC: JER 09:10 → JERFT 09:10
DX: S93.402A Sprain of unspecified ligament of left ankle, initial encounter (principal); W01.0XXA Fall on same level from slipping, tripping and stumbling without subsequent striking against object, initial encounter
CPT/HCPCS: 73610-TC-LT-FY; 73630-TC-LT; 99283-25

== ENCOUNTER 2024-06-26 12:26 | Emergency (ER) | payer OTHER ==
[2024-06-26 12:36] VITALS: TEMP 98.4; BMI 32.4
[2024-06-26 14:14] LABS: EPI CELLS 19 /uL (0-25.1); HYALINE CASTS 1 /uL (0-3.1); PH,URINE 5.5 (5.0-8.0); URINE APPEARANCE CLEAR; URINE BACTERIA 16 /uL (0-1359); URINE BILIRUBIN NEGATIVE (NEGATIVE); URINE COLOR YELLOW; URINE GLUCOSE (UA) 1+ (NEGATIVE); URINE KETONE NEGATIVE (NEGATIVE); URINE LEUK ESTERASE NEGATIVE (NEGATIVE); URINE NITRITE NEGATIVE (NEGATIVE); URINE PROTEIN NEGATIVE (NEGATIVE); URINE RBC 9 /uL (0-23.9); URINE UROBILINOGEN 0.2 mg/dL (0.2-1.0)
[2024-06-26 14:18] LABS: BASO % 0.8 % (0-2.0); EOS % 2.4 % (0-4.5); HEMATOCRIT 41.4 % (32.4-45.2); LYMPH % 38.7 % (8-40); MCH 29.5 pg (25.7-33.7); MCHC 33.7 g/dl (32.0-36.0); MEAN CELL VOLUME 87.4 fl (80-96); MEAN PLT VOLUME 8.3 fl (7.5-11.1); MONO % 7.2 % (3.8-10.2); NEUT % 50.9 % (42.8-82.8); PLATELET COUNT 303 10^3/uL (134-434); RBC 4.74 M/mm3 (3.60-5.2); WHITE BLOOD COUNT 9.5 K/mm3 (4.0-10.0)
[2024-06-26 14:36] LABS: POTASSIUM 5.3 mmol/L (3.5-5.1)
[2024-06-26] MEDS ORDERED: ACETAMINOPHEN INJECTION 100 ML ONE (14:36)
[2024-06-26] MEDS ORDERED: MAG HYDROX/AL HYDROX/SIMETH 30 ML UNIT-DOSE CUP ONE (14:37)
[2024-06-26] MEDS ORDERED: FAMOTIDINE 20 MG/50 ML IVPB 20 MG/50 ML MG IVPB ONE (14:37)
[2024-06-26 14:38] LABS: ALBUMIN 4.2 g/dl (3.4-5.0); BLOOD UREA NITROGEN 19.3 mg/dL (7-18); CALCIUM 9.4 mg/dL (8.5-10.1)
[2024-06-26 14:39] LABS: URINE WBC 61.7 /uL (0-25.8)
[2024-06-26 14:42] LABS: CREATININE 0.7 mg/dL (0.55-1.3)
[2024-06-26 14:43] LABS: BILIRUBIN,TOTAL 0.4 mg/dL (0.2-1); TOT PROT 8.1 g/dl (6.4-8.2)
[2024-06-26] MEDS: ACETAMINOPHEN 1000 MG/100 ML BAG IVPB ONE (14:44)
[2024-06-26] MEDS: MAG HYDROX/AL HYDROX/SIMETH 30 ML UNIT-DOSE CUP PO ONE (14:44)
[2024-06-26] MEDS: FAMOTIDINE 20 MG/50 ML IVPB 20 MG/50 ML MG IVPB ONE (14:45)
[2024-06-26] MEDS: morphine SULFATE 4 MG/ML VIAL IVPUSH ONE (17:18)
[2024-06-26 18:04] VITALS: BP 136/72; PULSE 67; RESP 16
== END 2024-06-26 18:04 | disposition home or self-care (01) ==
LOC: JER 12:26
PROC: 3E033GC Introduction of Other Therapeutic Substance into Peripheral Vein, Percutaneous Approach (ICD-10-PCS; principal; 2024-06-26)
PROC: 3E033NZ Introduction of Analgesics, Hypnotics, Sedatives into Peripheral Vein, Percutaneous Approach (ICD-10-PCS; 2024-06-26)
DX: R10.31 Right lower quadrant pain (principal); R10.32 Left lower quadrant pain; R11.0 Nausea
CPT/HCPCS: 36415; 74177-TC; 80053; 81003; 83690; 85025; 87086; 93005; 93010; 99285-25; J0131